=== PATIENT | female | born 1955 | race Caucasian/White ===

== ENCOUNTER → 2019-10-19 17:19 | Outpatient (CLI) | payer OTHER ==
[2019-10-26 14:31] VITALS: BMI 44.5
== END | disposition home or self-care (01) ==
LOC: D.LABREF 17:19
PROVIDERS: ATTEND Urology
DX: R31.9 Hematuria, unspecified (principal)

== ENCOUNTER 2019-10-26 11:45 | Outpatient (CLI) | payer OTHER ==
[~2019-10-26] VITALS: Ht 157.5 cm; Wt 110.5 kg
[2019-10-26 14:31] VITALS: Ht 157.5 cm; Wt 110.5 kg
--- NOTE | 2019-10-26 15:29 | NUR ---
1525 PT IS TOLERATING INFUSION OF ERTAPENEM 1 GM IV. DENIES ANY ITCHING. NO RASHES NOTED. NO C/O SOB OR CP. PT STATES THAT ARRANGEMENTS HAVE BEEN MADE WITH HOME HEALTH FOR FUTURE ABX TREATMENT. PT STATES THAT SHE HAS HAD A PICC LINE BEFORE AND IS AWARE OF CARE OF IT AND KNOWS HOW TO GET IN CONTACT WITH HOME NURSE.
--- NOTE | 2019-10-26 15:58 | NUR ---
1550 PT DENIES ANY REACTION TO IV ABX. STATES SHE IS READY TO GO HOME.
== END 2019-10-26 15:59 | disposition home or self-care (01) ==
LOC: D.OPS 11:45
PROVIDERS: ATTEND Urology
DX: Z16.24 Resistance to multiple antibiotics (principal); N39.0 Urinary tract infection, site not specified

== ENCOUNTER 2019-11-11 13:35 | Emergency (ER) | payer OTHER ==
[~2019-11-11] VITALS: Ht 157.5 cm; Wt 106.8 kg
[2019-11-11 13:43] VITALS: Ht 157.5 cm; Wt 106.8 kg
[2019-11-11 14:06] LABS: APPEARANCE CLEAR (CLEAR); BILIRUBIN NEGATIVE (NEGATIVE); COLOR STRAW (YELLOW); GLUCOSE NEGATIVE (NEGATIVE); KETONE NEGATIVE (NEGATIVE); NITRITE NEGATIVE (NEGATIVE); PROTEIN NEGATIVE (NEGATIVE); UROBILINOGEN NORMAL (NORMAL)
[2019-11-11 14:18] LABS: BASOPHILS 0.7 % (0-2); EOSINOPHILS 0.7 % (0-7); HEMATOCRIT 40.4 % (36.0-48.0); LYMPHOCYTES 25.8 % (15-50); MCH 28.5 pg (26.0-34.0); MCHC 32.2 g/dL (31.0-37.0); MCV 88.6 fL (80.0-100.0); MEAN PLATELET VOLUME 10.5 fL (7.4-10.4); MONOCYTES 14.7 % (2-11); NEUTROPHILS 58.1 % (40-80); PLATELET COUNT 156 10x3/uL (130-400); RBC 4.56 10x6/uL (4.00-5.40); RDW 13.5 % (11.5-14.5)
[2019-11-11 14:32] LABS: ANION GAP 11.9 mmol/L (8-16); CALCIUM 8.9 mg/dL (8.5-10.1); CARBON DIOXIDE 28.6 mmol/L (21.0-32.0); CREATININE - SERUM 1.1 mg/dL (0.6-1.3); POTASSIUM - SERUM 3.5 mmol/L (3.5-5.1)
[2019-11-11 14:38] LABS: ALBUMIN 3.3 g/dL (3.4-5.0); BILIRUBIN - TOTAL 0.62 mg/dL (0.2-1.3); PROTEIN - SERUM 7.4 g/dL (6.4-8.2)
[2019-11-11] MEDS ORDERED: XOFLUZA40 MG PO (16:12)
[2019-11-11] MEDS ORDERED: ZOFRAN ODT4 MG/UDTAB PO (16:12)
[2019-11-11 17:45] VITALS: BP 147/79
== END 2019-11-11 17:46 | disposition home or self-care (01) ==
LOC: D.ER 13:35
PROVIDERS: Emergency Medicine
DX: J10.1 Influenza due to other identified influenza virus with other respiratory manifestations (principal); E11.9 Type 2 diabetes mellitus without complications; E07.9 Disorder of thyroid, unspecified; I10 Essential (primary) hypertension; Q93.89 Other deletions from the autosomes

== ENCOUNTER 2019-12-20 05:47 | Day surgery (SDC) | payer OTHER ==
[~2019-12-20] VITALS: Ht 157.5 cm; Wt 110.2 kg
[~2019-12-20 05:47] MED LIST: ALBUTEROL SULF8.5 GM INH; FUROSEMIDE40 MG PO; GENTAMICIN80 MG/2 ML IM; HYDROCODON-ACE1 EA10 PO; K-TAB10 MEQ PO; LISINOPRIL-HCT1 EAC7 PO; MOBIC7.5 MG PO; OMEPRAZOLE CAP 20M PO; XOFLUZA40 MG PO; ZOFRAN ODT4 MG/UDTAB PO
[2019-12-20 06:24] LABS: HEMATOCRIT 38.6 % (36.0-48.0); HEMOGLOBIN 12.4 g/dL (12-16); MCH 28.1 pg (26.0-34.0); MCHC 32.1 g/dL (31.0-37.0); MCV 87.5 fL (80.0-100.0); MEAN PLATELET VOLUME 10.1 fL (7.4-10.4); RBC 4.41 10x6/uL (4.00-5.40); WBC 6.2 10x3/uL (4.8-10.8)
[2019-12-20 06:38] LABS: ANION GAP 11.4 mmol/L (8-16); CALCIUM 9.1 mg/dL (8.5-10.1); CARBON DIOXIDE 29.7 mmol/L (21.0-32.0); CREATININE - SERUM 1.2 mg/dL (0.6-1.3); POTASSIUM - SERUM 4.1 mmol/L (3.5-5.1)
[2019-12-20] MEDS ORDERED: CYCLOBENZAPRINE5 MG PO (07:21)
[2019-12-20] MEDS ORDERED: REQUIP5 MG PO (07:22)
[2019-12-20 07:23] VITALS: Ht 157.5 cm; Wt 110.2 kg
--- NOTE | 2019-12-20 16:42 | OP ---
PATIENT NAME: NANCY WASHINGTON MEDICAL RECORD: [id number] :57 LOCATION:D.OPS ADMISSION DATE: SURGEON: NEHEMIAH GILL MD DATE OF OPERATION: 12/20/2019 SURGEON: Nehemiah Gill MD ANESTHESIA: TIVA by Elif Strickland CRNA. DIAGNOSES: 1. Interstitial cystitis. 2. Urge urinary incontinence. 3. Urge fecal incontinence. 4. Recurrent urinary tract infections with Escherichia coli extended-spectrum beta-lactamase positive. PROCEDURES: 1. Cystoscopy, hydrodistention of the bladder, intravesical Rimso instillation. 2. Axonics Stage I with left S3 nerve root used. FINDINGS: On cystoscopy, single ureteral orifices bilaterally with no bladder tumors and diffuse bladder inflammation. On the Axonics sacral neuromodulation, the left S3 nerve root had a stronger response in the right S3 nerve root. BLOOD LOSS: None. CLINICAL HISTORY: This is a 64-year-old female, who has issues with urge urinary incontinence, fecal incontinence and recurrent urinary tract infections. She has urine culture showing E. coli ESBL positive, which were treated with intramuscular gentamicin injections daily. She comes now to have the Axonics Stage I. She has also issues with suprapubic pain, dysuria, which are consistent with interstitial cystitis. SHE IS ALLERGIC TO BACTRIM, CODEINE AND PENICILLIN. She was given Levaquin IV crewman armoured personnel carrier [id number] to the OR. DESCRIPTION OF PROCEDURE: The patient was given IV sedation, on her stretcher in supine position. Her legs were then placed in frog-leg position. She was prepped and draped. A 17-[place] cystoscope was used for visualization. Diffuse bladder inflammation was seen. She had hydrodistention of the bladder with 500 mL for about 2 minutes. The bladder was then fully emptied through the scope sheath and the scope was removed. A red rubber catheter was used to instill 50 mL of Rimso solution into the bladder. Once the solution was in the bladder, the catheter was removed, leaving the solution in the bladder. She will void this out spontaneously with time. We then turned her over in the prone position. Under fluoroscopy, we landmarked the position of the S3 sacral foramen on both sides. We also marked out on the skin the role of sacral foramina on each side. The skin overlying the S2 foramen was infiltrated with lidocaine containing epinephrine. Spinal needles were used to then enter into the S3 foramen. Both of the needles were tested and the response was stronger on the left side. We chose therefore to go ahead on the left side. The patient is left-handed. Prior to her going into the OR, we had marked out for a future pacemaker pocket, 4-cm inferior to the iliac crest on the left side. Another one was marked out on the right side just in case. We then decided to go ahead with the left side. The stylet of the spinal needle was removed. An extra-long stylet was then placed down. A stab incision was made on either side of the spinal needle. The needle was then removed, leaving the extra-long stylet in OPERATIVE REPORT [id number] NANCY WASHINGTON. The trocar dilator was then introduced with the radiopaque marker on the tip of the trocar sheath being placed at a point midway between the anterior and posterior surfaces of the sacral bones. The 4-channel electrode was then introduced after removing the dilator and the extra-long stylet. This was introduced through the sheath. We placed the 4-channel electrode such that channel number 3 was at the level of the inner surface of the sacral bone. All 4 channels were tested in turn in all 4 channels had good reflex responses at low current values. The patient was also relatively awake for this and she reported that she felt stimulation in the vaginal area when the current was turned on. We then opened up the previously marked site near the left iliac crest. A 1-cm incision was made here. A tunneling device was then used to bring the permanent electrode distal end to this new site near the left iliac crest. Here, it was connected to the temporary test electrode. A torque-limiting screwdriver was used to make the connection. The tunneling device was then used to create an exit site for the temporary test electrode near the midline of the sacrum, just cranial to the lead insertion site. The test electrode lead was then attached to the temporary pacemaker and good conduction was seen in all 4 leads. The lead insertion site was closed using simple interrupted 3-0 Vicryl. The wound for the connection to the temporary test facility engineer was irrigated out using lidocaine solution. This incision was closed using running subcuticular 4-0 Monocryl. Steri-Strips were applied to the incisions. Dressings were applied. The patient will be filling out a voiding diary for the next couple of days. I will see her back next week to check on her symptoms with the InterStim. TRANSINT:[id number] Voice Confirmation ID: [id number] DOCUMENT ID: [id number] NEHEMIAH GILL MD at 1642 CC: [id number] DICTATION DATE: 12/20/19 1210 CARD PLAYER: 12/20/19 1602 [facility] [place] 12/20/19 [place] [id number] [place] [id number]
== END 2019-12-20 13:50 | disposition home or self-care (01) ==
LOC: D.OPS 05:47
PROVIDERS: Anesthesiology; ATTEND Urology
DX: N30.10 Interstitial cystitis (chronic) without hematuria (principal); Z87.440 Personal history of urinary (tract) infections; N39.41 Urge incontinence; R15.2 Fecal urgency; N95.2 Postmenopausal atrophic vaginitis

== ENCOUNTER → 2019-12-26 17:40 | Outpatient (CLI) | payer OTHER ==
[2019-12-20 07:23] VITALS: BMI 44.5
[~2019-12-26 17:40] MED LIST changes: +CYCLOBENZAPRINE5 MG PO; +REQUIP5 MG PO
== END | disposition home or self-care (01) ==
LOC: D.LABREF 17:40
PROVIDERS: ATTEND Urology
DX: N39.0 Urinary tract infection, site not specified (principal)

== ENCOUNTER 2020-01-03 05:07 | Day surgery (SDC) | payer OTHER ==
[~2020-01-03] VITALS: Ht 157.5 cm; Wt 110.2 kg
[~2020-01-03 05:07] MED LIST changes: +MONODOX100 MG PO
[2020-01-03 05:50] LABS: ANION GAP 11.8 mmol/L (8-16); CREATININE - SERUM 1.2 mg/dL (0.6-1.3); POTASSIUM - SERUM 3.8 mmol/L (3.5-5.1)
[2020-01-03 05:54] LABS: BILIRUBIN NEGATIVE (NEGATIVE); GLUCOSE NEGATIVE (NEGATIVE); KETONE NEGATIVE (NEGATIVE); NITRITE NEGATIVE (NEGATIVE); UROBILINOGEN NORMAL (NORMAL)
[2020-01-03 05:55] LABS: EPITHELIAL CELLS 0-5 /hpf (0-5); RED CELLS - URINE 0-5 /hpf (0-5); WHITE CELLS - URINE 0-5 /hpf (NEGATIVE)
[2020-01-03 05:56] LABS: BACTERIA MODERATE /hpf (NEGATIVE)
[2020-01-03 05:57] LABS: HEMATOCRIT 39.7 % (36.0-48.0); HEMOGLOBIN 12.8 g/dL (12-16); MCH 28.1 pg (26.0-34.0); MCHC 32.2 g/dL (31.0-37.0); MCV 87.3 fL (80.0-100.0); MEAN PLATELET VOLUME 10.1 fL (7.4-10.4); RBC 4.55 10x6/uL (4.00-5.40); RDW 13.6 % (11.5-14.5); WBC 6.2 10x3/uL (4.8-10.8)
[2020-01-03 06:16] VITALS: BP 138/67; Ht 157.5 cm; Wt 110.2 kg
--- NOTE | 2020-01-03 09:09 | NUR ---
0854-REC'D FROM SURGERY. AWAKE AND ALERT,TEARFUL WITH C/O PAIN TO LEFT FLANK 08/09.VSS. IV PATENT TO LEFT ARM AT O. REVIEWED DISCHARGE CRITERIA. CL IN EASY REACH. SPOUSE AT BEDSIDE
--- NOTE | 2020-01-03 09:10 | NUR ---
0910-FULL LIQUID TRAY TO ROOM. TOLERATED GRAPE JUICE.
--- NOTE | 2020-01-03 09:50 | OP ---
PATIENT NAME: NANCY WASHINGTON MEDICAL RECORD: [id number] :57 LOCATION:D.[facility] ADMISSION DATE: SURGEON: NEHEMIAH GILL MD DATE OF OPERATION: 01/03/2020 SURGEON: Nehemiah Gill MD ANESTHESIA: TIVA by Elif Strickland CRNA DIAGNOSES: Urge urinary incontinence, fecal incontinence, recurrent urinary tract infections. The latest infection is with methicillin-resistant Staphylococcus aureus. PROCEDURE: Axonics stage II, permanent pacemaker implantation. ESTIMATED BLOOD LOSS: None. CLINICAL HISTORY: This is a 64-year-old female with a history of urge urinary incontinence, which has not responded to any medication. She also has fecal incontinence and recurrent urinary tract infections. She had E. coli, ESBL positive in the past, which I treated with intramuscular gentamicin injections and now her latest urine culture grows MRSA. The MRSA is sensitive to doxycycline and she is currently on doxycycline. She comes to have the Axonics stage II performed. She had an excellent response to the sacral neuromodulation trial. SHE IS ALLERGIC TO BACTRIM, CODEINE, PENICILLIN AND TEGADERM. She was given Levaquin IV liaison inspection laboratory assistant to the OR. DESCRIPTION OF PROCEDURE: The patient was placed in prone position on the OR table. She was prepped and draped. She is left handed and therefore her future permanent pacemaker site was placed on the left side. This was to allow wireless recharging every 2 weeks in the future. The incision was reopened by cutting the stitch. The old connection between the temporary pacemaker lead and the permanent pacemaker electrode was discovered. We pulled it out of the incision. The locking screw was loosened and the temporary lead was removed entirely. To the permanent pacemaker lead, we inserted the permanent pacemaker and tightened down the connecting screw with a torque-limiting screwdriver. An imgfave blade was used to create a pocket in the subcutaneous space medial to the incision. This was placed right underneath the skin and the subcutaneous fat. The permanent pacemaker was then placed into this pocket with the ceramic charging window facing laterally. The wound was then irrigated out with saline. The subcutaneous fat was reapproximated using 3-0 Vicryl. A running subcuticular 4-0 Monocryl stitch was then used to close the skin. Dressings were applied. I will see the patient in followup in 2 weeks' time. TRANSINT:[id number] Voice Confirmation ID: [id number] DOCUMENT ID: [id number] NEHEMIAH GILL MD at 0950 CC: [id number] DICTATION DATE: 01/03/20907 DOUBLE END TRIMMER: 01/03/20 09 REG [facility] [address] [place] [id number]
--- NOTE | 2020-01-03 12:05 | NUR ---
1010-AMBULATED TO RESTROOM WITH SLOW STEADY GAIT AND STANDBY ASSIST AND VOIDED WITHOUT COMPLICATIONS. DRESSING TO LEFT FLANK CDI. VSS. PAIN DECREASE TO 7/10. REMOVED IV WITH CATH INTACT,DISPOSED INTO SHARPS,COVERED SITE WITH GUAZE,SECURED WITH MEDIPORE TAPE.
--- NOTE | 2020-01-03 12:06 | NUR ---
1015-PT DRESSED. PAIN CONTINUE TO SUBSIDE SLOWLY. DRESSING TO FLANK CDI. REVIEWED POST OPERATIVE INSTRUCTIONS AND FOLLOW UP APPOINTMENT. VERBALIZED UNDERSTANDING. MED REP REVIEWED ALL WELL WITH NO FURTHER QUESTIONS OR CONCERNS FROM PT AND SPOUSE.
--- NOTE | 2020-01-03 12:08 | NUR ---
1020-ESCORTED OUT VIA W/C WITH SPOUSE DRIVING HOME
== END 2020-01-03 10:20 | disposition home or self-care (01) ==
LOC: D.OPS 05:07
PROVIDERS: Anesthesiology; ATTEND Urology
DX: N39.41 Urge incontinence (principal); R15.9 Full incontinence of feces; N30.90 Cystitis, unspecified without hematuria

== ENCOUNTER 2020-01-25 13:12 | Day surgery (SDC) | payer OTHER ==
[~2020-01-25] VITALS: Ht 157.5 cm; Wt 109.1 kg
[2020-01-25 13:21] VITALS: Ht 157.5 cm; Wt 109.1 kg
[2020-01-25 14:00] LABS: BILIRUBIN NEGATIVE (NEGATIVE); GLUCOSE NEGATIVE (NEGATIVE); KETONE NEGATIVE (NEGATIVE); NITRITE NEGATIVE (NEGATIVE); SPECIFIC GRAVITY 1.015 (1.005-1.020); UROBILINOGEN NORMAL (NORMAL)
[2020-01-25 14:05] LABS: BASOPHILS 0.5 % (0-2); EOSINOPHILS 13.2 % (0-7); HEMATOCRIT 43.5 % (36.0-48.0); HEMOGLOBIN 13.9 g/dL (12-16); IMMATURE GRANULOCYTES 1.4 % (0-5); LYMPHOCYTES 26.2 % (15-50); MCH 28.1 pg (26.0-34.0); MCV 88.1 fL (80.0-100.0); MEAN PLATELET VOLUME 10.1 fL (7.4-10.4); NEUTROPHILS 49.7 % (40-80); PLATELET COUNT 315 10x3/uL (130-400); RBC 4.94 10x6/uL (4.00-5.40); RDW 13.5 % (11.5-14.5); WBC 5.8 10x3/uL (4.8-10.8)
[2020-01-25 14:06] LABS: ANION GAP 10.6 mmol/L (8-16); CALCIUM 9.6 mg/dL (8.5-10.1); CREATININE - SERUM 1.1 mg/dL (0.6-1.3); POTASSIUM - SERUM 3.6 mmol/L (3.5-5.1)
[2020-01-25 14:13] LABS: ALBUMIN 3.9 g/dL (3.4-5.0); BILIRUBIN - TOTAL 0.45 mg/dL (0.2-1.3); PROTEIN - SERUM 8.2 g/dL (6.4-8.2)
[2020-01-25 14:52] VITALS: BP 135/62
--- NOTE | 2020-01-25 16:46 | NUR ---
1630-RECD TO ROOM FROM PACU. ADMIT THROUGH ER AND WILL DISCHARGE AFTER PHASE 2 RECOVERY. ALERT. CONTACT ISLOLATION PRECAUTIONS IMPLEMENTED DUE TO MRSA/E.COLI IN URINE PER REPORT OF DR. GILL. NOTIFIED OF ROOM NUMBER.
--- NOTE | 2020-01-28 10:26 | OP ---
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 PROCEDURE: Removal of bladder pacemaker and lead (Axonics). FINDINGS: Erosion of the bladder pacemaker edge through the skin incision. SPECIMENS: Bladder pacemaker and lead. ESTIMATED BLOOD LOSS: None. CLINICAL HISTORY: This is a 64-year-old female who has a history of diabetes mellitus type 2, urge urinary incontinence and fecal incontinence. She has recurrent urinary tract infections with E. coli ESBL positive. She has recent E. coli ESBL positive infection in the urine for which she is getting ertapenem IV at home by home care nurse. Her home care nurse today noted that the Axonics pacemaker has eroded through the incision. She was sent through the Emergency Room to have this pacemaker explanted. I gave her clindamycin 600 mg and gentamicin 80 mg IV financial institution branch manager to the OR. Her creatinine is normal. PROCEDURE: The patient was given induction of general anesthesia in supine position. She was intubated and ventilated. She was then placed into the prone position on the OR table. She was prepped and draped. The pacemaker device was grasped using an Allis clamp. It would not come out, so I lengthened the incision by about 3 or 4 more mm and finally the pacemaker could be completely removed from its pocket. By gently tugging on the lead, the entire lead came out. The pacemaker pocket was then irrigated out with peroxide saline solution. Quarter inch iodoform packing was placed into the wound for packing. The homecare has instructions to change the packing once a day with half inch iodoform packing. I will see her back in followup in 2 weeks' time to check on wound healing and also to check the urine for clearance of infection. TRANSINT:[id number] Voice Confirmation ID: [id number] DOCUMENT ID: [id number] NEHEMIAH GILL MD at 1026 CC: [id number] DICTATION DATE: 01/25/20 1545 VOUCHER EXAMINER: 01/25/20 2242 [facility] 01/25/20 [place] [address]
== END 2020-01-25 17:30 | disposition home or self-care (01) ==
LOC: D.ER 13:12 → D.OPS 13:12
PROVIDERS: ATTEND Family Medicine
DX: T83.598A Infection and inflammatory reaction due to other prosthetic device, implant and graft in urinary system, initial encounter (principal); E11.9 Type 2 diabetes mellitus without complications; I10 Essential (primary) hypertension; N39.41 Urge incontinence; N39.0 Urinary tract infection, site not specified; R15.9 Full incontinence of feces; K21.9 Gastro-esophageal reflux disease without esophagitis; M54.9 Dorsalgia, unspecified